=== PATIENT | male | born 1950 | race Caucasian/White ===

== ENCOUNTER 2016-12-26 19:28 | Emergency (ER) | payer OTHER ==
[2016-12-26 19:40] VITALS: RESP 16
--- NOTE | 2016-12-26 20:07 | EDPHY ---
H & P Stated Complaint: hand tremors earlier HPI/ROS: HPI CHIEF COMPLAINT: Hand tremors and lightheadedness HISTORY OF PRESENT ILLNESS: This patient very pleasant 66-year-old male, denies any significant medical history presents emergency room with what he states around 2:00 p.m. her 6 hours ago he developed hand shakiness. His hands were shaking this lasted 15 minutes and resolved. Patient then to be developed 2 hours later some lightheadedness. He thought he was dehydrated and shot a protein shake and water and then got abdominal cramps. He [employer] to online his symptoms decided come the emergency room to make sure he was not a heart attack. He denies any chest pain or shortness of breath. Denies headache neck pain numbness or tingling. He states his symptoms completely resolved in feels fine at this time. He denies cardiac or vascular disease. Past Medical History: Arthritis Past Surgical History: No significant surgical history Social History: Denies daily use of drugs alcohol tobacco products Family History: Noncontributory ROS REVIEW OF SYSTEMS: A comprehensive 10 point review of systems is otherwise negative aside from elements mentioned in the history of present illness. Exam Constitutional triage nursing summary reviewed, vital signs reviewed, awake/ alert. Eyes normal conjunctivae and sclera, EOMI, PERRLA. HENT normal inspection, atraumatic, moist mucus membranes, no epistaxis, neck supple/ no meningismus, no raccoon eyes. Respiratory clear to auscultation bilaterally, normal breath sounds, no respiratory distress, no wheezing. Cardiovascular rate normal, regular rhythm, no murmur, no edema, distal pulses normal. Gastrointestinal soft, non-tender, no rebound, no guarding, normal bowel sounds, no distension, no pulsatile mass. Genitourinary no CVA tenderness. Musculoskeletal no midline vertebral tenderness, full range of motion, no calf swelling, no tenderness of extremities, no meningismus, good pulses, neurovascularly intact. Skin pink, warm, & dry, no rash, skin atraumatic. Neurologic awake, alert and oriented x 3, AAOx3, moves all 4 extremities equally, motor intact, sensory intact, CN II-XII intact, normal cerebellar, normal vision, normal speech. Psychiatric normal mood/affect. Heme/Lymph/Immune no lymphadenopathy. Differential diagnosis includes but is not limited to: ACS, atypical chest pain , pneumothorax, pneumonia, pulmonary embolism, aortic dissection, congestive heart failure, tumor, musculoskeletal pain, esophageal pain, GERD, peptic ulcer disease, pancreatitis Medical Decision Making: Plan for this patient full surveillance system monitor, IV establishment, check troponin, EKG, electrolytes. IV hydration and re- evaluate. Unlikely to have acute coronary syndrome or chest pain equivalent. Given his constellation symptoms and history. Re-evaluation: EKG interpretation by me on record in [facility] system. Impression time of EKG 2049: This is sinus rhythm rate of 73. There is no acute ischemic changes. No ST elevation ST depression T-wave abnormalities. No prolonged intervals ED x-ray chest one view this shows right upper lobe mass. Versus round pneumonia. The patient does not have any pneumonia symptoms. I have updated the patient about his findings of his x-ray and explained that he most likely has a lung mass and that he needs this followed up by his primary care doctor or pulmonology I will refer him to on-call pulmonology. As for her is cardiac evaluation he has a nonischemic EKG. His troponin is negative. He has not had any chest pain or shortness of breath. His blood work is otherwise unremarkable vital signs unremarkable. Source: Patient - Personal History Current Tetanus/Diphtheria Vaccine: Unsure Current Tetanus Diphtheria and Acellular Pertussis (TDAP): Unsure - Medical/Surgical History Hx Asthma: No Hx Chronic Respiratory Disease: No Hx Diabetes: No Hx Cardiac Disease: No Hx Renal Disease: No Hx Cirrhosis: No Hx Alcoholism: No Hx HIV/AIDS: No Hx Splenectomy or Spleen Trauma: No Other PMH: hypothyroid - Social History Smoking Status: Never smoked Constitutional: Initial Vital Signs Temperature (C) 36.5 C 12/26/16 19:38 Heart Rate 79 12/26/16 19:38 Respiratory Rate 16 12/26/16 19:38 Blood Pressure 121/79 H 12/26/16 19:38 O2 Sat (%) 95 12/26/16 19:38 O2 Delivery Mode Room Air O2 (L/minute) 2 Allergies/Adverse Reactions: No Known Allergies Allergy (Unverified 03/06/10 15:42) Home Medications: Medication Instructions Recorded Muscle Relaxer 03/06/10 OXYCODONE HCL 03/06/10 Indomethacin 12/26/16 Levothyroxine [Synthroid 50 mcg 12/26/16 (*)] Medical Decision Making - Diagnostics Imaging Results: Imaging Impressions Chest X-Ray 12/26/16 20:11 Impression: A 4-cm mass or round pneumonia right upper lobe. Results called and discussed with Jason Duvall M.D., on December 26, 2016 at 2038. - Data Points Laboratory Results: Laboratory Results 12/26/16 20:40 12/26/16 20:40 12/26/16 12/26/16 12/26/16 20:40 20:40 20:40 WBC 9.93 10^3/uL H 10^3/uL (3.80-9.50) RBC 4.91 10^6/uL 10^6/uL (4.40-6.38) Hgb 14.7 g/dL g/dL (13.7-17.5) Hct 42.9 % % (40.0-51.0) MCV 87.4 fL fL (81.5-99.8) MCH 29.9 pg pg (27.9-34.1) MCHC 34.3 g/dL g/dL (32.4-36.7) RDW 12.9 % % (11.5-15.2) Plt Count 223 10^3/uL 10^3/uL (150-400) MPV 9.4 fL fL (8.7-11.7) Neut % (Auto) 82.8 % H % (39.3-74.2) Lymph % (Auto) 11.0 % L % (15.0-45.0) [place] % (Auto) 5.3 % % (4.5-13.0) Eos % (Auto) 0.1 % L % (0.6-7.6) Baso % (Auto) 0.4 % % (0.3-1.7) Nucleat RBC Rel Count 0.0 % % (0.0-0.2) Absolute Neuts (auto) 8.22 10^3/uL H 10^3/uL (1.70-6.50) Absolute Lymphs (auto) 1.09 10^3/uL 10^3/uL (1.00-3.00) Absolute Monos (auto) 0.53 10^3/uL 10^3/uL (0.30-0.80) Absolute Eos (auto) 0.01 10^3/uL L 10^3/uL (0.03-0.40) Absolute Basos (auto) 0.04 10^3/uL 10^3/uL (0.02-0.10) Absolute Nucleated RBC 0.00 10^3/uL 10^3/uL (0-0.01) Immature Gran % 0.4 % % (0.0-1.1) Immature Gran # 0.04 10^3/uL 10^3/uL (0.00-0.10) PT 13.4 SEC SEC (12.0-15.0) INR 1.03 (0.83-1.16) APTT 26.9 SEC SEC (23.0-38.0) Sodium 136 mEq/L mEq/L (134-144) Potassium 4.1 mEq/L mEq/L (3.5-5.2) Chloride 101 mEq/L mEq/L (97-110) Carbon Dioxide 23 mEq/l mEq/l (22-31) Anion Gap 12 mEq/L mEq/L (8-16) BUN 25 mg/dL H mg/dL (7-23) Creatinine 1.3 mg/dL mg/dL (0.7-1.3) Estimated GFR 55 Glucose 120 mg/dL H mg/dL (70-100) Calcium 9.4 mg/dL mg/dL (8.5-10.4) Magnesium 2.2 mg/dL mg/dL (1.6-2.3) Total Bilirubin 0.8 mg/dL mg/dL (0.1-1.4) Conjugated Bilirubin 0.3 mg/dL mg/dL (0.0-0.5) Unconjugated Bilirubin 0.5 mg/dL mg/dL (0.0-1.1) AST 21 IU/L IU/L (17-59) ALT 32 IU/L IU/L (21-72) Alkaline Phosphatase 72 IU/L IU/L (38-126) Creatine Kinase 103 IU/L IU/L (0-224) CK-MB (CK-2) Fraction 2.01 ng/mL ng/mL (0.00-3.19) Troponin I < 0.012 ng/mL ng/mL (0.000-0.034) NT-Pro-B Natriuret Pep 96 pg/mL pg/mL (0-125) Total Protein 6.9 g/dL g/dL (6.3-8.2) Albumin 3.9 g/dL g/dL (3.5-5.0) Lipase 28 IU/L IU/L (23-300) Medications Given: Discontinued Medications Sodium Chloride (Ns) 1,000 mls @ 0 mls/hr IV EDNOW ONE; Wide Open PRN Reason: Protocol Stop: 12/26/16 20:12 Last Admin: 12/26/16 20:52 Dose: 1,000 mls Departure - Departure Disposition: Home, Routine, Self-Care Clinical Impression: Lung mass Condition: Good Instructions: Lightheadedness (ED), Near Syncope (ED) Additional Instructions: 1. On her x-ray you have a lung mass seen in your right upper lung. This needs to be followed up by her primary care doctor or pulmonology. Please call their for an appointment. 2. Return emergency room if you have any worsening symptoms questions or concerns. Referrals: ELAINE COATES [Primary Care Provider] - As per Instructions Andres Ledbetter MD [Medical Doctor] - As per Instructions
[2016-12-26] MEDS ORDERED: NS 1,000 ML IV ONE (20:11)
[2016-12-26 20:46] LABS: % IMMATURE GRANULYOCYTES 0.4 % (0.0-1.1); ABSOLUTE IMMATURE GRANULOCYTES 0.04 10^3/uL (0.00-0.10); ADD DIFF? NO; ADD MORPH? NO; ADD SCAN? NO; ATYPICAL LYMPHOCYTE FLAG 0 (0-99); FRAGMENT RBC FLAG 0 (0-99); HEMATOCRIT 42.9 % (40.0-51.0); HEMOGLOBIN 14.7 g/dL (13.7-17.5); LEFT SHIFT FLG 0 (0-99); LIPEMIA HEMOLYSIS FLAG 90 (0-99); MEAN CELL HEMOGLOBIN 29.9 pg (27.9-34.1); MEAN CELL HEMOGLOBIN CONCENTR. 34.3 g/dL (32.4-36.7); MEAN CELL VOLUME 87.4 fL (81.5-99.8); MEAN PLATELET VOLUME 9.4 fL (8.7-11.7); PLATELET CLUMPS FLAG 0 (0-99); PLATELET COUNT 223 10^3/uL (150-400); RED BLOOD CELL COUNT 4.91 10^6/uL (4.40-6.38); RED CELL DISTRIBUTION WIDTH 12.9 % (11.5-15.2)
--- NOTE | 2016-12-26 20:52 | CPEKG ---
Heart Rate: 73 RR Interval: 822 P-R Interval: 188 QRSD Interval: 84 QT Interval: 400 QTC Interval: 441 P [place]: 73 QRS [place]: 70 T Wave [place]: 46 EKG Severity - NORMAL ECG - EKG Impression: SINUS RHYTHM Electronically Signed By: Evaristo Alcala 27-Dec-2016 09:43:32
[2016-12-26 21:00] LABS: APTT 26.9 SEC (23.0-38.0); INR 1.03 (0.83-1.16); PROTIME(PATIENT) 13.4 SEC (12.0-15.0)
[2016-12-26 21:01] LABS: ALANINE AMINOTRANSFERASE 32 IU/L (21-72); ALBUMIN 3.9 g/dL (3.5-5.0); ALKALINE PHOSPHATASE 72 IU/L (38-126); ANION GAP 12 mEq/L (8-16); ASPARTATE AMINOTRANSFERASE 21 IU/L (17-59); BILIRUBIN,TOTAL 0.8 mg/dL (0.1-1.4); BILIRUBIN-CONJUGATED 0.3 mg/dL (0.0-0.5); BILIRUBIN-UNCONJUGATED 0.5 mg/dL (0.0-1.1); CALCIUM 9.4 mg/dL (8.5-10.4); CARBON DIOXIDE 23 mEq/l (22-31); CHLORIDE 101 mEq/L (97-110); CREATININE 1.3 mg/dL (0.7-1.3); GLOMERULAR FILTRATION RATE 55; GLUCOSE 120 mg/dL (70-100); MAGNESIUM 2.2 mg/dL (1.6-2.3); POTASSIUM 4.1 mEq/L (3.5-5.2); SODIUM 136 mEq/L (134-144); TOTAL PROTEIN 6.9 g/dL (6.3-8.2)
[2016-12-26 21:13] LABS: CREATINE KINASE-MB FRACTION 2.01 ng/mL (0.00-3.19); TROPONIN I < 0.012 ng/mL (0.000-0.034)
[2016-12-26 21:47] VITALS: BP 116/75; PULSE 78; TEMP 98.1; O2SAT 96
== END 2016-12-26 21:46 | disposition home or self-care (01) ==
DX: R91.8 Other nonspecific abnormal finding of lung field (principal); E86.9 Volume depletion, unspecified

== ENCOUNTER 2017-01-05 13:26 | Day surgery (SDC) | payer OTHER ==
[2017-01-05] MEDS ORDERED: ALBUTEROL 3 ML DEYVIAL ONE (13:37)
[2017-01-05] MEDS ORDERED: MIDAZOLAM 2 MG/2 ML VIAL ONE (13:37)
[2017-01-05] MEDS ORDERED: LIDOCAINE 1% 300 MG/30 ML SDV ONE (13:37)
[2017-01-05] MEDS ORDERED: LIDOCAINE 2% JELLY 5 ML TUBE ONE (13:38)
[2017-01-05] MEDS ORDERED: fentaNYL 100 MCG/2 ML INJ ONE (13:38)
[2017-01-05] MEDS ORDERED: BENZOCAINE UNIT DOSE SPRAY HURRICAINE MM ONE (13:44)
[2017-01-05] MEDS ORDERED: LR 1,000 ML IV ONE (13:49)
--- NOTE | 2017-01-05 14:31 | PDPROPOC ---
Sedation Plan of Care Sedation Plan of Care: vital signs stable, mental status noted, patient educated of risks, benefits, alternatives, patient can tolerate sedation ASA Classification: ASA 1 Planned drugs: fentanyl, midazolam Mallampati Score: Class 1 Mallampati Reference Image: Patient passed 3-3-2 rule?: Yes
--- NOTE | 2017-01-05 15:21 | BVPULMO ---
[facility]- Pulmonology Patient Name: José Miguel Cervantes Procedure Date: 01/05/2017 1:47 PM Patient Type: Outpatient Attending MD/ER Physician: Hussain Leonardo MD Procedure: Bronchoscopy Indications: Lung mass Providers: Hussain Leonardo MD Medicines: Lidocaine 1% applied to cords 2 mL, Lidocaine 1% applied to the tracheobronchia l tree 14 mL, Fentanyl 150 mcg IV, Midazolam 6 mg IV Complications: No immediate complications Procedure: After informed consent, a time out was performed. N95 masks were worn, and the procedure was done in a negative pressure room. The patient was given appropria te topical anesthesia and intravenous sedation. The fiberopic bronchoscope was pas sed via a bite block orally into the larynx and subsequently into the lower trachea bronchial tree. Throughout the procedure, the patient's blood pressure, pulse, and oxygen saturations were monitored continuously. The Bronchoscope (Video) was introduced through the mouth and advanced to the tracheobronchial tree. The procedure was accomplished without difficulty. The patient tolerated the proced ure well. Findings: Specific locations: The following were directly visualized, and are normal: lar ynx, vocal cord motion, trachea, yvette, left mainstem bronchus, right mainstem bron chus, bronchus intermedius, left upper lobe including subsegments,left lower lobe including subsegments, right upper lobe including subsegments, right middle lob e including subsegments, right lower lober including subsegments. A transbronchial biopsy of a mass was performed in the right upper lobe using forceps and sent for histopathology examination. The procedure was guided by fluoroscopy. Biopsy of lung tissue was obtained. Two biopsy passes were perform ed. One biopsy sample was obtained. Brushings of a mass were obtained in the right upper lobe with a cytology brush and sent for routine cytology. Washings were obtained and sent for routine cytology and microbiology analysis. The return was clear. Post Op Diagnosis: - Lung mass - Transbronchial lung biopsies were performed. - Brushings were obtained. - Washings were obtained. Estimated Blood Loss: Estimated blood loss: 49 mL requiring treatment with epinephrine. Recommendation: - The patient will be observed post-procedure, until all discharge criteria are met. - Follow up in clinic within several days. - The patient was advised to call or return to the clinic if there are signs or symptoms suggesting a complication/adverse reaction from the procedure. Hussain Leonardo MD Hussain Leonardo MD 01/05/2017 3:21:21 PM Number of Addenda: 0 Note Initiated On: 01/05/2017 1:47 PM [email or web address]
[2017-01-05 16:24] VITALS: BP 106/73
[2017-01-05 16:28] VITALS: PULSE 91; RESP 16; TEMP 98.6
[2017-01-05 16:41] VITALS: O2SAT 95
== END 2017-01-05 16:44 | disposition home or self-care (01) ==
LOC: FSGY 13:26
PROVIDERS: ATTEND Internal Medicine Pulmonary Disease
PROC: 0BBC8ZX Excision of Right Upper Lung Lobe, Via Natural or Artificial Opening Endoscopic, Diagnostic (ICD-10-PCS; principal; 2017-01-05 14:00)
PROC: 0BJ08ZZ Inspection of Tracheobronchial Tree, Via Natural or Artificial Opening Endoscopic (ICD-10-PCS; principal; 2017-01-05 14:00)
DX: C34.11 Malignant neoplasm of upper lobe, right bronchus or lung (principal)
CPT/HCPCS: J0171; J2250; J3010

== ENCOUNTER → 2017-01-22 | Outpatient (CLI) | payer OTHER ==
[~2017-01-22] MED LIST: GADOBUTROL 10 ML VIAL IVP ONE
== END ==
LOC: FIMAGING 09:21
PROVIDERS: ATTEND Internal Medicine Hematology & Oncology
DX: C34.11 Malignant neoplasm of upper lobe, right bronchus or lung (principal)
CPT/HCPCS: A9585

== ENCOUNTER 2017-01-29 19:50 | Emergency (ER) | payer OTHER ==
[2017-01-29 19:57] VITALS: RESP 16
--- NOTE | 2017-01-29 20:11 | EDPHY ---
H & P Time Seen by Provider: 01/29/17 20:00 HPI/ROS: CHIEF COMPLAINT: Fluid leaking from surgery site. HISTORY OF PRESENT ILLNESS: 66 yo man had mediastinal surgery 2 days ago in [place] by for diagnosis of lung cancer. Today noticed sternal notch incision site "puffy" and a bit red; went to his PCP and was prescribed oral antibiotics. Just prior to arrival he was pushing and noticed a bunch of fluid get expressed from the wound. Presents with concern for a discharge from the wound and possible infection. No fever or chills. No trouble breathing. No difficulty with swallowing or change in voice. REVIEW OF SYSTEMS: Eye: no change in vision ENT: Sore throat Cardiac: no chest pain or syncope Pulmonary: no cough or SOB Abdomen: no vomiting, diarrhea, abdominal pain Musculoskeletal: no back pain Skin: A little bit red around the incision site Neuro: no headache Constitutional: no fever : no urinary symptoms A comprehensive 10 point review of systems is otherwise negative aside from elements mentioned in the history of present illness. PAST MEDICAL HISTORY: Lung cancer, thyroid Social history: works at [employer] General Appearance: Alert and conversant, cooperative. Eyes: No scleral icterus. ENT, Mouth: Normal mucous membranes. Pharynx is slightly red but no exudate and no trismus, no angioedema. Respiratory: Normal respiratory effort, breath sounds equal, lungs are clear to auscultation. Cardiovascular: Regular rate and rhythm. Gastrointestinal: Abdomen is soft and non tender. Neurological: Alert and oriented x3. Normally conversant. Face symmetric, normal movement and sensation in all extremities. Skin: Warm and dry, no rashes. Sternal notch incisions Steri-Strips are in place, no surrounding lymphangitis or erythema. Not swollen currently. Musculoskeletal: No peripheral edema and no joint swelling. Psychiatric: Not agitated. Emergency Department course/MDM: I-STAT and chest CT, will discuss with his surgeon. 2028: I-STAT creatinine is 1.1, CT scan discussed and consented. 2105: per Juan 2cm heterogeneous fluid in mediastinum, postsurgical changes, otherwise same as previous PET scan. 2114: Tariq Mondragon for Dr. Morgan, discussed case in detail. His surgical practice recommends that we discharge him, and he continue oral antibiotics and standard followup. They will call him on Wednesday. Discussed full case including but not limited to presentation, physical exam, history vital signs, labs, imaging. Smoking Status: Never smoked Constitutional: Initial Vital Signs Temperature (C) 37.4 C 01/29/17 19:54 Heart Rate 95 01/29/17 19:54 Respiratory Rate 16 01/29/17 19:54 Blood Pressure 134/89 H 01/29/17 19:54 O2 Sat (%) 93 01/29/17 19:54 O2 Delivery Mode Room Air Allergies/Adverse Reactions: No Known Allergies Allergy (Unverified 03/06/10 15:42) Home Medications: Medication Instructions Recorded Levothyroxine [Synthroid 50 mcg 12/26/16 (*)] Herbals/Supplements -Info Only 01/04/17 Ibuprofen 01/04/17 Testosterone 01/04/17 Medical Decision Making - Diagnostics Imaging Results: Imaging Impressions Chest CT 01/29/17 20:29 Impression: Air and complex fluid seen anterior to the trachea extending to the superior mediastinum which could be residual air and hemorrhage from the recent mediastinoscopy. Early abscess would be less likely. The mediastinal and right hilar lymphadenopathy and right upper lobe mass and opacification are similar to the comparison PET scan. Results called and discussed with Wesley Agustin at 2109 hours 29 January 2017 Differential Diagnosis: Differential considered including but not limited to postoperative hemorrhage, abscess, cellulitis, mediastinal perforation, wound dehiscence. - Data Points Laboratory Results: Laboratory Results 01/29/17 20:20 01/29/17 20:20 01/29/17 01/29/17 01/29/17 20:20 20:20 20:19 WBC 9.17 10^3/uL 10^3/uL (3.80-9.50) RBC 4.93 10^6/uL 10^6/uL (4.40-6.38) Hgb 15.3 g/dL g/dL (13.7-17.5) POC Hgb 15.6 gm/dL gm/dL (13.7-17.5) Hct 43.9 % % (40.0-51.0) POC Hct 46 % % (40-51) MCV 89.0 fL fL (81.5-99.8) MCH 31.0 pg pg (27.9-34.1) MCHC 34.9 g/dL g/dL (32.4-36.7) RDW 12.7 % % (11.5-15.2) Plt Count 274 10^3/uL 10^3/uL (150-400) MPV 9.6 fL fL (8.7-11.7) Neut % (Auto) 70.0 % % (39.3-74.2) Lymph % (Auto) 19.3 % % (15.0-45.0) [place] % (Auto) 9.1 % % (4.5-13.0) Eos % (Auto) 0.8 % % (0.6-7.6) Baso % (Auto) 0.4 % % (0.3-1.7) Nucleat RBC Rel Count 0.0 % % (0.0-0.2) Absolute Neuts (auto) 6.42 10^3/uL 10^3/uL (1.70-6.50) Absolute Lymphs (auto) 1.77 10^3/uL 10^3/uL (1.00-3.00) Absolute Monos (auto) 0.83 10^3/uL H 10^3/uL (0.30-0.80) Absolute Eos (auto) 0.07 10^3/uL 10^3/uL (0.03-0.40) Absolute Basos (auto) 0.04 10^3/uL 10^3/uL (0.02-0.10) Absolute Nucleated RBC 0.00 10^3/uL 10^3/uL (0-0.01) Immature Gran % 0.4 % % (0.0-1.1) Immature Gran # 0.04 10^3/uL 10^3/uL (0.00-0.10) POC Sodium 140 mEq/L mEq/L (134-144) Sodium 139 mEq/L mEq/L (134-144) POC Potassium 3.6 mEq/L mEq/L (3.3-5.0) Potassium 3.9 mEq/L mEq/L (3.5-5.2) POC Chloride 102 mEq/L mEq/L (97-110) Chloride 100 mEq/L mEq/L (97-110) Carbon Dioxide 25 mEq/l mEq/l (22-31) Anion Gap 14 mEq/L mEq/L (8-16) POC BUN 19 mg/dL mg/dL (7-23) BUN 19 mg/dL mg/dL (7-23) Creatinine 1.1 mg/dL mg/dL (0.7-1.3) POC Creatinine 1.1 mg/dL mg/dL (0.7-1.3) Estimated GFR > 60 Glucose 90 mg/dL mg/dL (70-100) POC Glucose 90 mg/dL mg/dL (70-100) Calcium 9.1 mg/dL mg/dL (8.5-10.4) Point of Care Test Results: 01/29/17 20:19 POC Sodium 140 POC Potassium 3.6 POC Chloride 102 POC BUN 19 POC Creatinine 1.1 POC Glucose 90 Departure - Departure Disposition: Home, Routine, Self-Care Clinical Impression: Drainage from wound Condition: Good Instructions: Acute Wounds (ED) Additional Instructions: Continue the antibiotics that you have been prescribed. Return for fever or trouble breathing or swallowing or skin redness. Keep an absorbable dressing over the incision. Your surgeon will call you Wednesday to follow up. Referrals: ELAINE COATES [Primary Care Provider] - As per Instructions
[2017-01-29 20:31] LABS: % IMMATURE GRANULYOCYTES 0.4 % (0.0-1.1); ABSOLUTE IMMATURE GRANULOCYTES 0.04 10^3/uL (0.00-0.10); ADD DIFF? NO; ADD MORPH? NO; ADD SCAN? NO; ATYPICAL LYMPHOCYTE FLAG 0 (0-99); FRAGMENT RBC FLAG 0 (0-99); HEMATOCRIT 43.9 % (40.0-51.0); HEMOGLOBIN 15.3 g/dL (13.7-17.5); LEFT SHIFT FLG 0 (0-99); LIPEMIA HEMOLYSIS FLAG 90 (0-99); MEAN CELL HEMOGLOBIN CONCENTR. 34.9 g/dL (32.4-36.7); MEAN PLATELET VOLUME 9.6 fL (8.7-11.7); PLATELET CLUMPS FLAG 0 (0-99); PLATELET COUNT 274 10^3/uL (150-400); RED BLOOD CELL COUNT 4.93 10^6/uL (4.40-6.38); RED CELL DISTRIBUTION WIDTH 12.7 % (11.5-15.2)
[2017-01-29] MEDS ORDERED: IOPAMIDOL (ISOVUE-300) 100 ML BTL ONE (20:33)
[2017-01-29 21:02] LABS: ANION GAP 14 mEq/L (8-16); CALCIUM 9.1 mg/dL (8.5-10.4); CARBON DIOXIDE 25 mEq/l (22-31); CHLORIDE 100 mEq/L (97-110); CREATININE 1.1 mg/dL (0.7-1.3); GLOMERULAR FILTRATION RATE > 60; GLUCOSE 90 mg/dL (70-100); POTASSIUM 3.9 mEq/L (3.5-5.2); SODIUM 139 mEq/L (134-144)
[2017-01-29 21:44] VITALS: BP 131/94; PULSE 68; TEMP 98.6; O2SAT 96
== END 2017-01-29 21:45 | disposition home or self-care (01) ==
DX: T81.89XA Other complications of procedures, not elsewhere classified, initial encounter (principal); Z85.118 Personal history of other malignant neoplasm of bronchus and lung; Y71.2 Prosthetic and other implants, materials and accessory cardiovascular devices associated with adverse incidents
CPT/HCPCS: 82947-QW; Q9967